=== PATIENT | female | born 1950 | race Caucasian/White ===

== ENCOUNTER → 2016-10-25 | Outpatient (CLI) | payer MEDICARE ==
[~2016-10-25] MED LIST: AMIT50 PO; ASPI81CH7 CHEW; DIATRIZOATE MEGLUM/DIATRIZOATE SOD 120 ML BTL (for RAD DIAG) RECTAL ONE; FLON0.053; FURO1TAB62 PO; GABA300C3 PO; GAS-125C7 PO; LORA-392 PO; LORA-474 PO; LOSA25TA PO; METF500T PO; RANI300T PO; TIZA2CAP PO; VITA200017 OR
--- NOTE | 2016-10-25 17:51 | RADRPT ---
EXAM DATE/TIME: 10/25/2016 16:59 [place] COMPARISON: No previous studies available for comparison. INDICATIONS : Constipation FLUORO TIME: 1.8 minutes IMAGE COUNT: 12 CONTRAST: 1. [facility] MEDICAL HISTORY : Colon cancer SURGICAL HISTORY : Colectomy, ileostomy, appendectomy ENCOUNTER: Initial ACUITY: 1 week PAIN SCORE: 10/10 LOCATION: Bilateral abdomen FINDINGS: Gastrografin was gently instilled through a defunctionalized colon to help remove a large amount of i nspissated stool in the ascending colon. The colon is defunctionalized from rectum to the splenic flexure measuring less than 1 cm. Gastrogra fin was gently instilled into the ascending and transverse colon revealing a large amount of solid st ool. There is no evidence for obstruction. There is minimal reflux into the terminal ileum. On the post evacuation film, there is some emptying of the contrast and stool from the colon. Patient was instructed to return in the a.m. for followup film. If she starts having significant abd ominal pain, she is to return to the Emergency Room. Findings have been discussed with Dr. Odonnell on today's date. CONCLUSION: Successful instillation of Gastrografin into a defunctionalized ascending colon from the rectum. Patient returned for its film 24 hours post. There is significant improvement with only minimal resi dual stool in the colon. Celestine Gastelum MD FACR on October 25, 2016 at 17:46 Board Certified Radiologist. This report was verified electronically.
== END ==
LOC: HRAD 14:28
PROVIDERS: ATTEND Colon & Rectal Surgery
DX: K59.00 Constipation, unspecified (principal)
CPT/HCPCS: 74270; Q9963

== ENCOUNTER 2016-10-27 17:56 | Emergency (ER) | payer MEDICARE ==
[~2016-10-27] VITALS: Ht 167.6 cm; Wt 58.0 kg
[~2016-10-27 17:56] MED LIST changes: -ASPI81CH7 CHEW; -DIATRIZOATE MEGLUM/DIATRIZOATE SOD 120 ML BTL (for RAD DIAG) RECTAL ONE; -FURO1TAB62 PO; -LORA-474 PO; -LOSA25TA PO; -METF500T PO
[2016-10-27 18:03] VITALS: BP 163/88; PULSE 84; RESP 16; TEMP 98.2; O2SAT 98
[2016-10-27] MEDS ORDERED: ASPI81CH7 CHEW (18:29)
[2016-10-27] MEDS ORDERED: LOSA25TA PO (18:29)
[2016-10-27] MEDS ORDERED: FURO1TAB62 PO (18:29)
[2016-10-27] MEDS ORDERED: LORA-474 PO (18:29)
[2016-10-27] MEDS ORDERED: METF500T PO (18:29)
--- NOTE | 2016-10-27 18:43 | PD ---
HPI Chief Complaint: General Weakness Time Seen by Provider: 18:21 Travel History International Travel<30 days: No Contact w/Intl Traveler<30days: No Traveled to known affect area: No History of Present Illness HPI This 66-year-old female is complaining of generalized weakness. She says she's been feeling very weak. She has a history of rectal cancer. She had surgery in 2006 and has an ileostomy in place. She says that last Friday she had some lower abdominal cramping and dry heaves. She also started passing some stool from her rectum which she had not done for many years. She has been following with Dr. Odonnell. He sent her for a CT of the abdomen on October 24. On Friday she went to [place] and had a Gastrografin enema which was thought to be successful in removing stool. She says her vomiting and pain have subsided but now she is complaining of feeling extremely weak. She says she also does not sleep at night. PFSH Past Medical History Blood Disorders: No Anxiety: Yes Depression: Yes Cancer: Yes (HX. RECTAL CANCER) Cardiovascular Problems: No High Cholesterol: Yes Chemotherapy: Yes (LAST IN october 2006) Chest Pain: Yes Diabetes: Yes Patient Takes Glucophage: Yes Diminished Hearing: No Endocrine: No Gastrointestinal Disorders: Yes (STG. 3 COLON CANCER, REMISSION, ACID REFLUX) GERD: Yes Genitourinary: No Headaches: Yes Hepatitis: No Hypertension: Yes Immune Disorder: No Musculoskeletal: Yes (ARTHRITIS) Neurologic: Yes (NEUROPATHIES EROS. LEGS, HANDS, FEET) Psychiatric: Yes (ANXIETY) Reproductive: No Respiratory: No Immunizations Current: Yes Thyroid Disease: No Tetanus Vaccination: > 5 Years Influenza Vaccination: Yes ?: Not Past Surgical History Abdominal Surgery: Yes (COLON CA COLECTOMY; ILEOSTOMY /APPENDECTOMY) AICD: No Appendectomy: Yes Cardiac Surgery: No Ear Surgery: No Eye Surgery: No Gynecologic Surgery: Yes (HYSTERECTOMY) Hysterectomy: Yes Joint Replacement: No Oral Surgery: No Pacemaker: No Thoracic Surgery: No Other Surgery: Yes Social History Alcohol Use: Yes (rarely) Tobacco Use: No Substance Use: No Allergies-Medications (Allergen,Severity, Reaction): Coded Allergies: No Known Allergies (Unverified , 10/27/16) Reported Meds & Prescriptions Reported Meds & Active Scripts Active Reported Lasix (Furosemide) 20 Mg Tab Unknown Dose PO DIRECTED PRN Aspirin Children's (Aspirin) 81 Mg Chew 81 Mg CHEW DAILY Ativan (Lorazepam) 1 Mg Tab 1 Mg PO DAILY PRN Losartan (Losartan Potassium) 25 Mg Tab 25 Mg PO DAILY Metformin (Metformin HCl) 500 Mg Tab 500 Mg PO DAILY With a meal Review of Systems General / Constitutional: No: Fever, Chills Eyes: No: Diploplia HENT: No: Headaches Cardiovascular: No: Chest Pain or Discomfort Respiratory: No: Cough, Shortness of Breath Gastrointestinal: No: Vomiting Genitourinary: No: Dysuria Neurologic: Positive: Weakness, Dizziness Hematologic/Lymphatic: No: Easy Bruising Physical Exam Narrative GENERAL: Well-developed female SKIN: Focused skin assessment warm/dry. HEAD: Atraumatic. Normocephalic. EYES: Pupils equal and round. No scleral icterus. No injection or drainage. ENT: No nasal bleeding or discharge. Mucous membranes pink and moist. NECK: Trachea midline. No JVD. CARDIOVASCULAR: Regular rate and rhythm. No murmur appreciated. RESPIRATORY: No accessory muscle use. Clear to auscultation. Breath sounds equal bilaterally. GASTROINTESTINAL: Abdomen soft, non-tender, nondistended. Ileostomy in place MUSCULOSKELETAL: No obvious deformities. No clubbing. No cyanosis. No edema. NEUROLOGICAL: Awake and alert. No obvious cranial nerve deficits. Motor grossly within normal limits. Normal speech. PSYCHIATRIC: Anxious mood and affect; insight and judgment normal. Data Data Last Documented VS Vital Signs Date Time Temp Pulse Resp B/P Pulse Ox O2 Delivery O2 Flow Rate FiO2 10/27/16 20:19 67 16 185/76 100 Room Air 10/27/16 18:03 98.2 Orders Complete Blood Count With Diff (10/27/16 18:32) Comprehensive Metabolic Panel (10/27/16 18:32) Urinalysis - C+S If Indicated (10/27/16 18:32) Magnesium (Mg) (10/27/16 18:32) Sodium Chlor 0.9% 1000 Ml Inj (Ns 1000 M (10/27/16 18:45) Potassium Chloride (Kcl) (10/27/16 19:30) Sodium Chlor 0.9% 1000 Ml Inj (Ns 1000 M (10/27/16 20:15) Labs Laboratory Tests Test 10/27/16 18:52 White Blood Count 6.9 TH/MM3 Red Blood Count 4.51 MIL/MM3 Hemoglobin 13.8 GM/DL Hematocrit 41.5 % Mean Corpuscular Volume 92.1 FL Mean Corpuscular Hemoglobin 30.6 PG Mean Corpuscular Hemoglobin 33.3 % Concent Red Cell Distribution Width 14.1 % Platelet Count 329 TH/MM3 Mean Platelet Volume 7.3 FL Neutrophils (%) (Auto) 79.8 % Lymphocytes (%) (Auto) 13.3 % Monocytes (%) (Auto) 6.1 % Eosinophils (%) (Auto) 0.3 % Basophils (%) (Auto) 0.5 % Neutrophils # (Auto) 5.6 TH/MM3 Lymphocytes # (Auto) 0.9 TH/MM3 Monocytes # (Auto) 0.4 TH/MM3 Eosinophils # (Auto) 0.0 TH/MM3 Basophils # (Auto) 0.0 TH/MM3 CBC Comment DIFF FINAL Differential Comment Sodium Level 140 MEQ/L Potassium Level 3.4 MEQ/L Chloride Level 102 MEQ/L Carbon Dioxide Level 28.4 MEQ/L Anion Gap 10 MEQ/L Blood Urea Nitrogen 14 MG/DL Creatinine 0.80 MG/DL Estimat Glomerular Filtration 72 ML/MIN Rate Random Glucose 92 MG/DL Calcium Level 9.6 MG/DL Magnesium Level 2.1 MG/DL Total Bilirubin 0.7 MG/DL Aspartate Amino Transf 28 U/L (AST/SGOT) Alanine Aminotransferase 56 U/L (ALT/SGPT) Alkaline Phosphatase 127 U/L Total Protein 7.1 GM/DL Albumin 3.5 GM/DL MDM Medical Decision Making Medical Screen Exam Complete: Yes Emergency Medical Condition: Yes Medical Record Reviewed: Yes Differential Diagnosis Differential includes electrolyte imbalance, dehydration Narrative Course Potassium is slightly low at 3.4. Other electrolytes are normal. Patient is stable for discharge. I do believe she has some mild dehydration. She has been given IV fluids Diagnosis Primary Impression: Dehydration Additional Instructions: Follow-up with Dr. Engle Disposition: 01 DISCHARGE HOME Condition: Stable Franklin Haque MD Oct 27, 2016 18:42
[2016-10-27] MEDS ORDERED: SODIUM CHLOR 0.9% 1000 ML INJ 1,000 ML IV ONE ×2 (18:45→20:15)
[2016-10-27 19:00] VITALS: BP 184/79; PULSE 67; RESP 16; O2SAT 99
[2016-10-27 19:03] LABS: AUTOMATED NEUTROPHIL # 5.6 TH/MM3 (1.8-7.7); BASOPHIL % 0.5 % (0.0-2.0); EOSINOPHIL % 0.3 % (0.0-4.0); HEMATOCRIT 41.5 % (35.0-46.0); LYMPH % 13.3 % (9.0-44.0); LYMPHOCYTE # 0.9 TH/MM3 (1.0-4.8); MEAN CELL VOLUME 92.1 FL (80.0-100.0); MEAN CORPUSCULAR HEMOGLOBIN 30.6 PG (27.0-34.0); MEAN CORPUSCULAR HGB CONC 33.3 % (32.0-36.0); MONO % 6.1 % (0.0-8.0); NEUT % 79.8 % (16.0-70.0); PLATELET COUNT 329 TH/MM3 (150-450); RED BLOOD COUNT 4.51 MIL/MM3 (4.00-5.30); RED CELL DISTRIBUTION WIDTH 14.1 % (11.6-17.2); WHITE BLOOD COUNT 6.9 TH/MM3 (4.0-11.0)
[2016-10-27 19:05] LABS: HEMO FLAGS DIFF FINAL
[2016-10-27 19:15] VITALS: BP 184/79; PULSE 67; RESP 16; O2SAT 99
[2016-10-27 19:20] LABS: CHLORIDE 102 MEQ/L (98-107); POTASSIUM 3.4 MEQ/L (3.5-5.1); SODIUM (NA) 140 MEQ/L (136-145)
[2016-10-27 19:23] LABS: ANION GAP 10 MEQ/L (5-15); BICARBONATE 28.4 MEQ/L (21.0-32.0); MAGNESIUM 2.1 MG/DL (1.5-2.5)
[2016-10-27 19:24] LABS: BLOOD UREA NITROGEN 14 MG/DL (7-18)
[2016-10-27 19:27] LABS: ALT (GPT) 56 U/L (10-53); AST (GOT) 28 U/L (15-37); GLOMERULAR FILTRATION RATE 72 ML/MIN (>89)
[2016-10-27 19:28] LABS: TOTAL BILIRUBIN ADULT 0.7 MG/DL (0.2-1.0)
[2016-10-27 19:30] LABS: ALKALINE PHOSPHATASE 127 U/L (45-117)
[2016-10-27] MEDS ORDERED: POTASSIUM CHLORIDE 20 MEQ CONTROLLED RELEASE TAB PO ONE (19:30)
[2016-10-27 20:19] VITALS: BP 185/76; PULSE 67; RESP 16; O2SAT 100
== END 2016-10-27 21:05 | disposition home or self-care (01) ==
LOC: PHED 17:56
DX: E86.0 Dehydration (principal); Z85.048 Personal history of other malignant neoplasm of rectum, rectosigmoid junction, and anus; E78.00 Pure hypercholesterolemia, unspecified; E11.9 Type 2 diabetes mellitus without complications; I10 Essential (primary) hypertension
CPT/HCPCS: 80053; 83735; 85025; 96360; 96361; 99285; J7030